=== PATIENT | male | born 1990 | race Caucasian/White ===

== ENCOUNTER 2018-07-29 20:07 | Inpatient (IN) | payer OTHER ==
--- NOTE | 2018-07-29 20:16 | PDOC ---
Rapid Medical Evaluation Chief Complaint: Pain Time Seen by Provider: 07/29/18 20:16 Medical Evaluation: Allergies Allergy/AdvReac Type Severity Reaction Status Date / Time No Known Allergies Allergy Verified 07/29/18 20:15 Vital Signs Temp Pulse Resp BP Pulse Ox 99.7 F H 113 H 16 164/100 100 07/29/18 20:12 07/29/18 20:12 07/29/18 20:12 07/29/18 20:12 07/29/18 20:12 07/29/18 20:16 I have performed a brief in-person evaluation of this patient. The patient presents with a chief complaint of: constipation x months. Last BM- "months ago" Pertinent physical exam findings: ABD Firm and distended I have ordered the following: labs, urine, CTAP The patient will proceed to the ED for further evaluation. Discharge Disposition - Diagnosis Constipation due to opioid therapy - Referrals - Patient Instructions - Post Discharge Activity
[2018-07-29] MEDS ORDERED: SODIUM CHLORIDE 1,000 ML IV STA (20:20)
[2018-07-29 20:42] LABS: BASO % 0.6 % (0-2.0); EOS % 2.5 % (0-4.5); HEMATOCRIT 41.9 % (35.4-49); HEMOGLOBIN 14.3 GM/dL (11.7-16.9); LYMPH % 36.8 % (8-40); MCH 30.1 pg (25.7-33.7); MCHC 34.1 g/dl (32.0-35.9); MEAN CELL VOLUME 88.3 fl (80-96); MEAN PLT VOLUME 7.5 fl (7.5-11.1); MONO % 8.8 % (3.8-10.2); NEUT % 51.3 % (42.8-82.8); PLATELET COUNT 306 K/MM3 (134-434); RBC 4.75 M/mm3 (4.00-5.60); RDW 13.1 % (11.9-15.9)
[2018-07-29 21:07] LABS: ALBUMIN 4.1 g/dl (3.4-5.0); ALK PHOS 99 U/L (45-117); ANION GAP 7 MMOL/L (8-16); BILIRUBIN,TOTAL 0.3 mg/dL (0.2-1); BLOOD UREA NITROGEN 14 mg/dL (7-18); CALCIUM 8.7 mg/dL (8.5-10.1); CHLORIDE 105 mmol/L (98-107); CO2 29 mmol/L (21-32); CREATININE 1.1 mg/dL (0.55-1.3); GLUCOSE,RANDOM 95 mg/dL (74-106); LIPASE 92 U/L (73-393); POTASSIUM 3.9 mmol/L (3.5-5.1); SGOT/AST 17 U/L (15-37); SGPT/ALT 20 U/L (13-61); SODIUM 140 mmol/L (136-145); TOT PROT 7.8 g/dl (6.4-8.2)
--- NOTE | 2018-07-29 21:50 | PDOC ---
Attending Attestation - HPI HPI: 07/29/18 23:09 The patient is a 27-year-old male with past medical history significant for opiate abuse on methadone and asthma presents to the emergency department with constipation. The patient presents with severe constipation, associated with abdominal distention and abdominal pain. The patient reports he hasnt had a full bowel movement in months. The patient reports using over the counter laxatives, without relief. The patient reports he tried to delay having bowel movements, secondary to the hard stool with a painful bowel movement. The patient reports taking stool softeners, laxatives, drinking castor oil and recently having a fleet enema, without improvement. The patient reports an additional concern of dysuria. Denies nausea, vomiting, loss of appetite, hematuria, frequency or urgency to urinate, fever, chills. Allergies: NKA Social history: None reported PCP: Ratna Ambriz MD - Physicial Exam PE: 07/29/18 22:33 GENERAL: Awake, alert, and fully oriented, in no acute distress HEAD: No signs of trauma EYES: PERRLA, EOMI, sclera anicteric, conjunctiva clear ENT: Auricles normal inspection, hearing grossly normal, nares patent, oropharynx clear without exudates. Moist mucosa NECK: Normal ROM, supple, no lymphadenopathy, JVD, or masses LUNGS: Breath sounds equal, clear to auscultation bilaterally. No wheezes, and no crackles HEART: +Tachycardia. Regular rate and rhythm, normal S1 and S2, no murmurs, rubs or gallops ABDOMEN: +Abdominal distended with palpable mass to the L. side of the abdomen consistent with fecal impaction. EXTREMITIES: Normal range of motion, no edema. No clubbing or cyanosis. No cords, erythema, or tenderness NEUROLOGICAL: Cranial nerves II through XII grossly intact. Normal speech. SKIN: Warm, Dry, normal turgor, no rashes or lesions noted. - Medical Decision Making 07/29/18 22:34 Documentation prepared by Rolanda Holley, acting as behavioral medical director for Adrienne Hopkins DO. <Rolanda Holley - Last Filed: 07/29/18 23:09> - Resident Resident Name: Rashida Navarro - ED Attending Attestation I have performed the following: I have examined & evaluated the patient, The case was reviewed & discussed with the resident, I agree w/resident's findings & plan, Exceptions are as noted - Medical Decision Making 07/29/18 21:50 I, Dr. Adrienne Hopkins, DO, attest that this document has been prepared under my direction and personally reviewed by me in its entirety. I further attest, that it accurately reflects all work, treatment, procedures and medical decision -making performed by me. 07/29/18 22:06 a/p: 27yo male with constipation x 4 months -has to use a suppository and enema to have a bm -rectal pain -on methadone -has been eating and drinking - no vomiting -now leaking watery stool around the rectal area -will send labs, ua, ct abd/pelvis -will need fecal disimpaction 07/30/18 01:39 pt with UTI pt with sever constipation to the cecum will start disimpaction and enema will need admission for surgical eval 07/30/18 01:40 pt with hydro and uti from fecal impaction 07/30/18 01:40 case discussed with [facility] who accepts pt to service <Adrienne Hopkins - Last Filed: 07/30/18 01:40>
[2018-07-29 21:55] LABS: URINE APPEARANCE SLCLOUDY; URINE BILIRUBIN NEGATIVE (<2.0 mg/dL); URINE COLOR YELLOW; URINE GLUCOSE (UA) NEGATIVE (NEGATIVE); URINE KETONE NEGATIVE (NEGATIVE); URINE LEUK ESTERASE 2+ (NEGATIVE); URINE NITRITE NEGATIVE (NEGATIVE); URINE PROTEIN NEGATIVE (NEGATIVE)
[2018-07-29 22:01] LABS: EPI CELLS RARE /HPF (FEW); URINE MUCUS RARE
[2018-07-29] MEDS ORDERED: LIDOCAINE HCL 5% TOP OINTMENT 50 GM TUBE TP ONE (22:03)
[2018-07-29] MEDS ORDERED: CEFTRIAXONE 1,000 MG in DEXTROSE 5%-WATER - 50 ML IVPB ONE (22:03)
[2018-07-29] MEDS ORDERED: LIDOCAINE VISCOUS 2% ORAL/TOP 20 ML UNIT-DOSE CUP ONE (22:18)
[2018-07-29] MEDS ORDERED: CEFTRIAXONE 1 GM/50 ML BAG ONE (22:19)
--- NOTE | 2018-07-29 22:33 | PDOC ---
History of Present Illness - General Chief Complaint: Pain Stated Complaint: ABDOMINAL PAIN Time Seen by Provider: 07/29/18 20:16 - History of Present Illness Initial Comments: Andrey Ravi is a 27yo man with a history of previous substance abuse, currently on methadone, and chronic constipation who presents with abdominal distension and pain secondary to severe constipation. He reports that he has not had a normal, full bowel movement in months. Mr Ravi reports that he has had severe constipation since starting on methadone 1.5 years ago. He reported this to his methadone clinic but was told to "eat fruit and drink more water." He tried using over the counter laxatives and stool softeners including Miralax and occasionally Metamucil without any improvement. He was previously seen in the ED in February complaining of abdominal pain and was found to be constipated at that time as well; he was prescribed doc /senna and referred to GI. He states that GI only told him to continue the senna , but it has not helped. He additionally reports that the constipation has become so severe because he has had very hard stools and pain with bowel movements, so he has intentionally delayed trying to have a bowel movement for days at a time. At this point, he has a distended abdomen and severe pain. He reports liquid stool on occasion that he believes is coming out around a large, hard and sharp piece of stool. He reports that he can feel the stool all the way up to the epigastric area under his ribs. He has also had leakage of liquid stool recently. He has tried drinking sandoval oil, stool softeners and laxatives, and recently tried a Fleet's enema without improvement. He was trying to put off coming to the ED, but his mother made him come today. Mr Ravi denies any nausea or vomiting, and he has been able to eat and drink without difficulty. He does report some burning pain with urination but no frequency or urgency. He has not had fevers, chills, or any other symptoms. Past History - Past Medical History Allergies/Adverse Reactions: Allergies Allergy/AdvReac Type Severity Reaction Status Date / Time No Known Allergies Allergy Verified 07/29/18 20:15 Home Medications: Ambulatory Orders Benzonatate [Tessalon Perle] 100 mg PO TID PRN #30 capsule 02/24/14 Moxifloxacin HCl [Avelox] 400 mg PO DAILY #7 tablet 02/24/14 Salmeterol/Fluticasone [Advair 250Mcg/50Mcg] 1 inh PO BID #1 diskus 02/24/14 Zolpidem Tartrate [Ambien] 10 mg PO HS #30 tablet 08/17/15 Docusate Sodium [Colace] 100 mg PO DAILY #10 capsule 02/23/18 Methadone [Dolophine -] 120 mg PO DAILY 02/23/18 Sennosides [Senna] 8.6 mg PO DAILY #10 tablet 02/23/18 Anemia: No Asthma: Yes Cancer: No Cardiac Disorders: No CVA: No COPD: No CHF: No Dementia: No Diabetes: No GI Disorders: No Disorders: No HTN: No Hypercholesterolemia: No Kidney Stones: No Liver Disease: No Seizures: No Thyroid Disease: No - Surgical History Abdominal Surgery: No Appendectomy: No Cardiac Surgery: No Cholecystectomy: No Lung Surgery: No Neurologic Surgery: No Orthopedic Surgery: No - Family Disease History Family Disease History: Diabetes: Grandparents (maternal grandmother) - Reproductive History Testicular Surgery: No - Immunization History Immunization Up to Date: Yes - Suicide/Smoking/Psychosocial Hx Smoking History: Never smoked Have you smoked in the past 12 months: No Number of Cigarettes Smoked Daily: 10 Information on smoking cessation initiated: No 'Breaking Loose' booklet given: 02/23/18 Hx Alcohol Use: No Drug/Substance Use Hx: No Substance Use Type: None Hx Substance Use Treatment: No Review of Systems - Review of Systems Comments:: General: No fevers, no chills, no weight or appetite change, no malaise HEENT: No changes in vision, no changes in hearing, no congestion, no sore throat CV: No chest pain, no palpitations, no LE edema Pulm: No SOB, no cough, no wheezing GI: No nausea or vomiting. Severe constipation, small watery diarrhea, bowel incontinence : No frequency, no urgency. +dysuria, burning pain Musc: No back pain, no joint swelling, no recent injury Skin: No rash, no lesions, no erythema Endo: No excessive thirst, no heat/cold intolerance Heme: No unusual bruising or bleeding, no swollen glands Neuro: No syncope, no numbness/tingling, no focal weakness Vasc: No claudication Psych: No recent change in mood, no SI or HI *Physical Exam - Vital Signs Last Vital Signs Temp Pulse Resp BP Pulse Ox 99.7 F H 113 H 16 164/100 100 07/29/18 20:12 07/29/18 20:12 07/29/18 20:12 07/29/18 20:12 07/29/18 20:12 - Physical Exam Comments: General: Comfortable, no acute distress HEENT: PERRL, EOMI, MMM, voice normal, normal neck ROM, no LAD Cards: RRR, no murmur appreciated Pulm: Comfortable on room air, clear to auscultation bilaterally Abd: Distended, firm. Mass along left side of abdomen and around to epitastrium c/w fecal impaction : No CVA tenderness Rectal: Anus slightly open with liquid stool leaking. No blood, no lesions, no external hemorrhoids. Very large, [id number] stool palpable, difficult to reach edges, at least 3" in diameter. Ext: Atraumatic. No LE edema. ROM intact. Strength 5/5 and equal bilaterally Vasc: Extremities WWP. Palpable radial and pedal pulses bilaterally Skin: Normal color, no rashes or lesions Neuro: A&Ox3, CN grossly intact, normal speech, motor/sensory grossly intact and symmetric Psych: Mood appropriate to situation ED Treatment Course - LABORATORY CBC & Chemistry Diagram: 07/29/18 20:33 07/29/18 20:31 - ADDITIONAL ORDERS Additional order review: Laboratory Results 07/29/18 07/29/18 07/29/18 21:40 20:33 20:31 WBC 9.0 RBC 4.75 Hgb 14.3 Hct 41.9 MCV 88.3 MCH 30.1 MCHC 34.1 RDW 13.1 Plt Count 306 D MPV 7.5 Absolute Neuts (auto) 4.6 Neutrophils % 51.3 D Lymphocytes % 36.8 D Monocytes % 8.8 Eosinophils % 2.5 D Basophils % 0.6 Nucleated RBC % 0 Sodium 140 Potassium 3.9 Chloride 105 Carbon Dioxide 29 Anion Gap 7 L BUN 14 Creatinine 1.1 Creat Clearance w eGFR > 60 Random Glucose 95 Calcium 8.7 Total Bilirubin 0.3 AST 17 ALT 20 Alkaline Phosphatase 99 Total Protein 7.8 Albumin 4.1 Lipase 92 Urine Color Yellow Urine Appearance Slcloudy Urine pH 5.0 Ur Specific [place] 1.021 Urine Protein Negative Urine Glucose (UA) Negative Urine Ketones Negative Urine Blood Negative Urine Nitrite Negative Urine Bilirubin Negative Urine Urobilinogen 2.0 Ur Leukocyte Esterase 2+ H Urine WBC (Auto) 71 Urine RBC (Auto) 2 Ur Epithelial Cells Rare Urine Mucus Rare 07/29/18 20:33 RBC 4.75 MCV 88.3 MCHC 34.1 RDW 13.1 MPV 7.5 Neutrophils % 51.3 D Lymphocytes % 36.8 D Monocytes % 8.8 Eosinophils % 2.5 D Basophils % 0.6 - Medications Given in the ED: ED Medications Discontinued Medications Generic Name Dose Route Start Last Admin Trade Name Freq PRN Reason Stop Dose Admin Sodium Chloride 1,000 mls @ 1,000 mls/hr 07/29/18 20:20 07/29/18 20:49 Normal Saline - IV 07/29/18 21:19 1,000 mls/hr ASDIR STA Administration Lidocaine HCl 1 applic 07/29/18 22:03 07/29/18 22:29 Xylocaine 5% Top. Ointment TP 07/29/18 22:04 1 applic ONCE ONE Administration Medical Decision Making - Medical Decision Making 07/29/18 22:33 Andrey Ravi is a 27yo man currently on methadone with a history of chronic constipation. He presents with severe abdominal pain and distension, stating that he has not had a bowel movement in four months. - CBC, CMP, UA and CT abd/pelvis with contrast ordered in [facility] - Labs reviewed, no abnormalities. - UA positive. Ceftriaxone 1g given for complicated UTI 07/30/18 01:07 - CT completed. Impacted stool throughout entire colon from rectum to cecum, colon up to 11cm in diameter - Manual disimpaction attempted with minimal success 07/30/18 01:27 - Soap suds enema given - Will reattempt disimpaction following enema - 15mg IV toradol given for pain, 0.5mg ativan for anxiety 07/30/18 02:42 - Some improvement in pain and anxiety - Following enema, some liquid stool evacuated along with enema liquid. No solid stool noted, but Mr Ravi states that he "can feel it moving down" - Discussed admission with the med/surg team. Patient will most likely need disimpaction or manual removal of stool under anesthesia as he is experiencing significant discomfort from bedside attempts - Will allow the patient to rest. He may also still get some benefit from the enema. Will re-evaluate and possibly attempt to remove additional stool at bedside if possible. 07/30/18 07:32 - No additional attempt made overnight - Has been seen by med/surg team and admitted for remainder of care. - Continue NPO as Mr Ravi may need remainder of disimpaction under anesthesia. Unlikely to be able to successfully evacuate without assistance and removal of a significant amount of hard stool. Patient signed out to incoming ED team for any remaining care, pending bed placement. Seen and discussed with Dr Hopkins. Rashida Navarro PGY1 *DC/Admit/Observation/Transfer Diagnosis at time of Disposition: Constipation due to opioid therapy, Fecal impaction of colon - Discharge Dispostion Decision to Admit order: Yes - Referrals - Patient Instructions - Post Discharge Activity
[2018-07-30] MEDS ORDERED: LIDOCAINE HCL 2% JELLY 10 ML CARTRIDGE PR ONE (00:26)
[2018-07-30] MEDS ORDERED: MINERAL OIL ENEMA 133 ML ENEMA PR ONE (00:26)
[2018-07-30] MEDS ORDERED: KETOROLAC TROMETHAMINE 30 MG/1 ML VIAL IVPUSH ONE (00:32)
[2018-07-30] MEDS ORDERED: LIDOCAINE HCL 2% JELLY 10 ML CARTRIDGE ONE (01:05)
[2018-07-30] MEDS ORDERED: LORazepam 2 MG/ML SDV VIAL ONE (01:05)
[2018-07-30] MEDS ORDERED: KETOROLAC TROMETHAMINE 15 MG/ML VIAL ONE (01:05)
[2018-07-30] MEDS: LACTATED RINGERS SOLUTION 1,000 ML IV SCH (03:20)
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
[2018-07-30] MEDS ORDERED: METHADONE HCL 10 MG TABLET PO SCH (06:00)
[2018-07-30 06:38] LABS: INR 1.14 (0.83-1.09); PROTHROMBIN TIME (PATIENT) 13.5 SEC (9.7-13.0)
[2018-07-30 06:41] LABS: ACTIVATED PTT 31.3 SECONDS (25.2-36.5)
--- NOTE | 2018-07-30 06:48 | PN ---
Teaching Attending Note Name of Resident: Vera Parks ATTENDING PHYSICIAN STATEMENT I saw and evaluated the patient. I reviewed the resident's note and discussed the case with the resident. I agree with the resident's findings and plan as documented. SUBJECTIVE: Patient is a 27 y/o CM with a PMH significant for opiate abuse on methadone therapy and chronic constipation (CT scan done 03/02). Though he will sometimes have small, liquidy BMs he hasn't had a proper BM in 4 months. Occasionally uses enemas, etc. Hemodynamics stable. Labs essentially normal. Mass fecal impaction with mild R-hydronephrosis seen on CT. ER consulted sgy, GI. Has had several days of dysuria near the end of his stream. OBJECTIVE: VS, labs, and imaging all reviewed NAD, AAOx3 RRR s1/2 no mgr Distended abdomen that is dull to percussion with irregularly shaped palpable masses bordering the colon likely representing colonic contents even to the area which I would assume to be the ascending colon. CN2-12 wnl, no fnd NC AT EOMI PERRLA Normal mood, appropriate behavior Rectal exam shows small fissure at 6 o clock and very hard stool with some liquid enema contents leaking around. No franco blood, etc. CT reviewed; mild R-hydronephrosis with largely dilated colon. No s/s inflammation. Labs reviewed ASSESSMENT AND PLAN: Mr. Ravi is a 27 y/o methadone patient presenting with fecal impaction 1) Acute fecal impaction 2/2 opiate use -NPO; consult GI and sgy to followup -Consider methylnaltrexone. Manual disimpaction by ER failed. -Hold off on further enemas, etc. until found. 2) Methadone maintenance for opiate addiction in remission -Obtain dose and continue inpaitent 3) Hydronephrosis (R) -Due to fecal impaction. Followup repeat US once resolved/resolving. Likely cause of UTI trigger. Likely do not need uro consult at this juncture due to the impaction being the obvious cause. FENA -LR@100 -Monitor and replete PRN -NPO til seen by consultants -As tolerated Full Code
[2018-07-30] MEDS ORDERED: METHADONE HCL 40 MG DISPERSABLE TABLET ONE (08:16)
[2018-07-30] MEDS ORDERED: METHADONE HCL 10 MG TABLET ONE (08:16)
[2018-07-30] MEDS: METHADONE 80 MG, METHADONE 30 MG PO SCH (08:30)
--- NOTE | 2018-07-30 08:45 | PN ---
Progress Note (short form) - Note Progress Note: surgery 27m admitted for fecal impaction on methadone. Management per gi. will be available if requires surgery.
--- NOTE | 2018-07-30 09:50 | CON.GI ---
Consult Consult Specialty:: GI Referred by:: Hospitalist Service Reason for Consultation:: Constipation / fecal impaction - History of Present Illness Chief Complaint: Constoipation, urinary frequency History of Present Illness: 27M admitted for evaluation of constipation. He describes scant bowel movements , watery bowel movements at times and strained bowle movements since he started abusing opioids 2 years ago. It has gotten progressively worse. He was seen by Dr. Gibbons 03/02 who prescribed a bowel regimen of miralax, erika and mag citrate. He said it helped minimally. CT scan in the ER revealed a significant fecal impaction involving the entire colon. Manual dsimpaction was attempted in the ED however he stopped them due to pain. He states that he has manually disimpacted himself in the past. He has had abdominal cramping and fullness. He denies rectal bleeding. he has never had a colonoscopy. There is no family history of colorectal cancer or other GI malignancy. - History Source History Provided By: Patient, Family Member (mother present at bedside) - Past Medical History Psych: Yes: Addictions (Opioid abuse, intermittent cocaine abuse) - Past Surgical History Additional Surgical History: Tonsillectomy - Alcohol/Substance Use Hx Alcohol Use: No History of Substance Use: reports: Cocaine, Heroin (states no use for 6 months, maintained on daily methadone) - Smoking History Smoking history: Never smoked Have you smoked in the past 12 months: No Aproximately how many cigarettes per day: 10 - Social History Usual Living Arrangement: With Parent ADL: Independent 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 History of Recent Travel: No Home Medications - Allergies Allergies/Adverse Reactions: Allergies Allergy/AdvReac Type Severity Reaction Status Date / Time No Known Allergies Allergy Verified 07/29/18 20:15 - Home Medications Home Medications: Ambulatory Orders Benzonatate [Tessalon Perle] 100 mg PO TID PRN #30 capsule 02/24/14 Moxifloxacin HCl [Avelox] 400 mg PO DAILY #7 tablet 02/24/14 Salmeterol/Fluticasone [Advair 250Mcg/50Mcg] 1 inh PO BID #1 diskus 02/24/14 Zolpidem Tartrate [Ambien] 10 mg PO HS #30 tablet 08/17/15 Docusate Sodium [Colace] 100 mg PO DAILY #10 capsule 02/23/18 Methadone [Dolophine -] 120 mg PO DAILY 02/23/18 Sennosides [Senna] 8.6 mg PO DAILY #10 tablet 02/23/18 Family Disease History - Family Disease History Family Disease History: Diabetes: Mother (Alive: DM II, Colon polyps ), Other: Father (Alive: CAD with MN), Mother, Brother (Alive: heroin use), Son (None), Daughter (None) Other Family History: No family history of colorectal cancer or other GI malignancy Physical Exam-GI Vital Signs: Vital Signs Temperature 97.9 F 07/30/18 06:22 Pulse Rate 77 07/30/18 06:22 Respiratory Rate 18 07/30/18 06:22 Blood Pressure 135/89 07/30/18 06:22 O2 Sat by Pulse Oximetry (%) 99 07/30/18 06:22 Constitutional: Yes: Calm Eyes: No: Sclera Icterus Cardiovascular: Yes: Regular Rate and Rhythm Respiratory: Yes: CTA Bilaterally Gastrointestinal Inspection: Yes: Distention (prominent abdomen). No: Scars ...Auscultate: Yes: Normoactive Bowel Sounds ...Palpate: Yes: Other (fullness throughout abdomen, particularly left sided and suprapubic). No: Tenderness ...Percussion: No: Tympanitic ...Rectal Exam: Yes: Other (hard stool noted in rectal vault) Edema: No (No LE edema) Neurological: Yes: Alert Labs: CBC, BMP 07/29/18 20:33 07/29/18 20:31 INR, PTT INR 1.14 (0.83-1.09) H 07/30/18 06:00 Hepatic Panel Total Bilirubin 0.3 mg/dL (0.2-1) 07/29/18 20:31 AST 17 U/L (15-37) 07/29/18 20:31 ALT 20 U/L (13-61) 07/29/18 20:31 Alkaline Phosphatase 99 U/L (45-117) 07/29/18 20:31 Albumin 4.1 g/dl (3.4-5.0) 07/29/18 20:31 Imaging - Results Cat Scan: Report Reviewed, Image Reviewed Problem List - Problems (1) Constipation due to opioid therapy Assessment/Plan: With fecal impaction / obstipation Discussed manual disimpaction under sedation with patient today. he states that he hads nothing to eat or drink today except for methadone with water this morning After disimpaction will start bowel regimen This may include trial of relistor as well Check TSH (ordered for AM) Agree with surgical consult NPO except meds with small sips water IV fluids per primary team Code(s): K59.03 - DRUG INDUCED CONSTIPATION; T40.2X5A - ADVERSE EFFECT OF OTHER OPIOIDS, INITIAL ENCOUNTER
[2018-07-30] MEDS: Methylnaltrexone Bromide 12 MG/0.6 ML KIT SQ SCH (10:23)
--- NOTE | 2018-07-30 12:15 | PN ---
Physical Exam: SUBJECTIVE: Patient seen and examined at bedside. no acute events overnight- patient is still having significant abdominal pain and discomfort even after having received the enema. he was restarted on his methadone dose this am. he denies any CP/SOB/N/V or fevers OBJECTIVE: Vital Signs Period Temp Pulse Resp BP Sys/Rondon Pulse Ox Last 24 Hr 97.9 F-99.7 F 77-113 16-20 135-164/88-100 98-100 GENERAL: The patient is awake, alert, in slight acute distress. EYES: no scleral icterus NECK: no JVD, no lymphadenopathy LUNGS: CTA B/L; no rales, rhonchi or wheezing HEART: Regular rate and rhythm, S1, S2 without murmur, rub or gallop. ABDOMEN: tense, distended hypoactive bowel sounds, no tenderness upon palpation. EXTREMITIES: 2+ pulses, warm, well-perfused, no edema. PSYCH: Normal mood, normal affect. SKIN: Warm, dry, normal turgor, no rashes or lesions noted Laboratory Results - last 24 hr 07/29/18 07/29/18 07/29/18 20:31 20:33 21:40 WBC 9.0 RBC 4.75 Hgb 14.3 Hct 41.9 MCV 88.3 MCH 30.1 MCHC 34.1 RDW 13.1 Plt Count 306 D MPV 7.5 Absolute Neuts (auto) 4.6 Neutrophils % 51.3 D Lymphocytes % 36.8 D Monocytes % 8.8 Eosinophils % 2.5 D Basophils % 0.6 Nucleated RBC % 0 PT with INR INR PTT (Actin FS) Sodium 140 Potassium 3.9 Chloride 105 Carbon Dioxide 29 Anion Gap 7 L BUN 14 Creatinine 1.1 Creat Clearance w eGFR > 60 Random Glucose 95 Lactic Acid Calcium 8.7 Total Bilirubin 0.3 AST 17 ALT 20 Alkaline Phosphatase 99 Total Protein 7.8 Albumin 4.1 Lipase 92 Urine Color Yellow Urine Appearance Slcloudy Urine pH 5.0 Ur Specific [place] 1.021 Urine Protein Negative Urine Glucose (UA) Negative Urine Ketones Negative Urine Blood Negative Urine Nitrite Negative Urine Bilirubin Negative Urine Urobilinogen 2.0 Ur Leukocyte Esterase 2+ H Urine WBC (Auto) 71 Urine RBC (Auto) 2 Ur Epithelial Cells Rare Urine Mucus Rare Blood Type Antibody Screen 07/30/18 07/30/18 07/30/18 06:00 06:00 06:00 WBC RBC Hgb Hct MCV MCH MCHC RDW Plt Count MPV Absolute Neuts (auto) Neutrophils % Lymphocytes % Monocytes % Eosinophils % Basophils % Nucleated RBC % PT with INR 13.50 H INR 1.14 H PTT (Actin FS) 31.3 Sodium Potassium Chloride Carbon Dioxide Anion Gap BUN Creatinine Creat Clearance w eGFR Random Glucose Lactic Acid 0.6 Calcium Total Bilirubin AST ALT Alkaline Phosphatase Total Protein Albumin Lipase Urine Color Urine Appearance Urine pH Ur Specific [place] Urine Protein Urine Glucose (UA) Urine Ketones Urine Blood Urine Nitrite Urine Bilirubin Urine Urobilinogen Ur Leukocyte Esterase Urine WBC (Auto) Urine RBC (Auto) Ur Epithelial Cells Urine Mucus Blood Type O NEGATIVE Antibody Screen Negative Active Medications Generic Name Dose Route Start Last Admin Trade Name Joyce PRN Reason Stop Dose Admin Lactated Ringer's 1,000 mls @ 100 mls/hr 07/30/18 03:15 07/30/18 03:20 Lactated Ringers Solution IV 100 mls/hr ASDIR JUDITH Administration Ceftriaxone Sodium 1 gm/ 50 mls @ 100 mls/hr 07/30/18 20:00 Dextrose IVPB DAILY JUDITH Protocol Methadone HCl 80 mg/ Methadone 110 mg 07/30/18 08:30 07/30/18 08:30 HCl 30 mg PO 110 mg DAILY@0600 JUDITH Administration Methylnaltrexone [place] 12 mg 07/30/18 10:00 07/30/18 10:23 Relistor - SQ 12 mg DAILY JUDITH Administration ASSESSMENT/PLAN: Patient is a 27 year old male with history of opiate abuse (percocet oxycontin, IV heroin) last used 5 months ago, currently on Methadone 110mg daily, presents with complaint of constipation. Fecal impaction -Patient endorses last solid bowel movement approx. 4 months ago. Liquid brown bowel movements since that time. -Severe diffuse colonic fecal impaction noted on CT abdomen pelvis . Rectum distended to 9.3cm diameter. -NPO for now -IV lactated ringer's at 100mL/ hour -Dr Conn saw patient; will perform manual disimpaction under sedation, in addition, patien started on 12mg of methylnaltrexone daily -Surgery saw patient- no surgical intervention at this time Hydronephrosis -Right sided hydronephrosis, hydroureter noted on CT scan abdomen and pelvis. Likely secondary to mass effect obstruction from fecal impaction. -monitor and f/u urology as outpatient Urinary tract infection -Complains of dysuria upon end of urination stream for past week. No hematuria, or urinary frequency. -UA shows 2+ leukocyte esterase, 71 WBC, 2 RBC. -UTI likely secondary to urinary stasis, from ureteral obstruction from fecal impaction. -Rocephin 1 gram IV Q24H Opiod dependence -Patient states he takes Methadone 110mg PO daily -restarted him on this dose FEN -IV lactated ringer's at 100mL/ hour -replete electrolytes when necessary -NPO Prophylaxis -SCDs, TEDs, B/L lower extremities, in anticipation for possible surgical, or GI intervention. r Problem List - Problems (1) Constipation due to opioid therapy Code(s): K59.03 - DRUG INDUCED CONSTIPATION; T40.2X5A - ADVERSE EFFECT OF OTHER OPIOIDS, INITIAL ENCOUNTER (2) Fecal impaction of colon Code(s): K56.41 - FECAL IMPACTION Visit type - Emergency Visit Emergency Visit: Yes ED Registration Date: 07/30/18 Care time: The patient presented to the Emergency Department on the above date and was hospitalized for further evaluation of their emergent condition. - New Patient This patient is new to me today: Yes Date on this admission: 07/30/18 - Critical Care Critical Care patient: No
--- NOTE | 2018-07-30 12:38 | PN ---
Teaching Attending Note Name of Resident: Chanel Bergeron ATTENDING PHYSICIAN STATEMENT I saw and evaluated the patient. I reviewed the resident's note and discussed the case with the resident. I agree with the resident's findings and plan as documented. SUBJECTIVE:c/o diffuse abdominal pain, assoc with shooting pains every 60- 90mins. has been able to tolerate diet. has seen MD in the past who just started stool softeners. denies Cp, SOB, fever, chills, N/V OBJECTIVE: Last Vital Signs Temp Pulse Resp BP Pulse Ox 97.9 F 77 18 135/89 98 07/30/18 06:22 07/30/18 06:22 07/30/18 06:22 07/30/18 06:22 07/30/18 08:00 General NAD CV S1 S2 RRR no murmur/rub/gallop Lungs CTA B/L no wheezing/rales/rhonchi abdomen firm +distended with prominence noted in the LLQ, diffusely tender, hypoactive BS Extremities no pedal edema ASSESSMENT AND PLAN: 27yo M with PMH remote heroin dependence now on methadone and asthma presented to the ER with constipation and obstipation for 4 months and found to have fecal impaction on imaging 1. Fecal impaction- likely due to opiates. Fecalith seen on imaging with noted hard stool by resident on rectal exam. NPO for manual disempaction in the OR today under sedation. will start bowel regimen after, IVF. will need well site drilling engineer agent to reverse effects of mu receptors on the colon while on methadone 2. UTI- likley due to inability to complete empty the bladder. on ceftriaxone day 2. f/u cx 3. R hydronpehrosis- likely due to compression from fecal impaction. should self resolve once corrected. can have f/u images to determine resolution 4. remote heroin use on methadone- dose confirmed. will cont methadone 110mg. no signs of withdrawal 5. DVT ppx- lovenox 6. spoke with mother present at bedside. all questions answered. verbalized understanding and agreement with plan
[2018-07-30] MEDS ORDERED: LIDOCAINE HCL 2% 100 MG/5 ML DISP.SYRIN ONE (14:27)
[2018-07-30] MEDS ORDERED: LIDOCAINE VISCOUS 2% ORAL/TOP 20 ML UNIT-DOSE CUP MM ONE (14:35)
--- NOTE | 2018-07-30 14:48 | PN ---
Progress Note (short form) - Note Progress Note: Procedure: Manual disimpaction under anesthesia Indication: massive fecal impaction Consent: obtained from patient Location: endoscopy unit. cardiopulmonary monitoring Medications: Per anesthesia Patient was sedated. Once sedated, manual disimpaction was undertaken. Copious amounts of hard brown stool were removed from the rectum. There was scant pink blood mixed with the stool initially. there was no palpable, reachable solid stool noted in the rectum when it was completed. 2% viscous lidocane was applied using my finger to the anal canal and distal rectum. Patient tolrated the procedure well MirLAX 17g TID Continue relistor 12mg SC daily Clear liquids Problem List - Problems (1) Constipation due to opioid therapy Code(s): K59.03 - DRUG INDUCED CONSTIPATION; T40.2X5A - ADVERSE EFFECT OF OTHER OPIOIDS, INITIAL ENCOUNTER
[2018-07-30] MEDS: POLYETHYLENE GLYCOL 3350 119 GM BTL PO SCH ×2 (15:59→22:20)
[2018-07-30 16:22] VITALS: BMI 26.4
[2018-07-30] MEDS ORDERED: cefTRIAXone SODIUM 1 GM VIAL ONE (22:17)
[2018-07-30] MEDS ORDERED: DEXTROSE 5%-WATER - 50 ML IVPB ONE (22:17)
[2018-07-30] MEDS: CEFTRIAXONE 1 GM in DEXTROSE 5%-WATER - 50 ML IVPB SCH (22:19)
[2018-07-31] MEDS ORDERED: METHADONE HCL 10 MG TABLET ONE (05:45)
[2018-07-31] MEDS ORDERED: METHADONE HCL 40 MG DISPERSABLE TABLET ONE (05:46)
[2018-07-31] MEDS: METHADONE 80 MG, METHADONE 30 MG PO SCH (05:47)
[2018-07-31] MEDS: POLYETHYLENE GLYCOL 3350 119 GM BTL PO SCH ×3 (05:48→21:21)
[2018-07-31 08:04] LABS: BASO % 0.6 % (0-2.0); EOS % 2.6 % (0-4.5); LYMPH % 44.3 % (8-40); MCH 28.6 pg (25.7-33.7); MCHC 32.4 g/dl (32.0-35.9); MEAN CELL VOLUME 88.5 fl (80-96); MEAN PLT VOLUME 7.6 fl (7.5-11.1); NEUT % 44.5 % (42.8-82.8); PLATELET COUNT 306 K/MM3 (134-434); RBC 4.52 M/mm3 (4.00-5.60); RDW 13.1 % (11.9-15.9); WHITE BLOOD COUNT 9.7 K/mm3 (4.0-10.0)
[2018-07-31] MEDS ORDERED: PT OWN MED DRAWER 7, Y5N ONE ×4 (09:54→16:23)
[2018-07-31] MEDS: CEFTRIAXONE 1 GM in DEXTROSE 5%-WATER - 50 ML IVPB SCH (10:00)
[2018-07-31] MEDS: Methylnaltrexone Bromide 12 MG/0.6 ML KIT SQ SCH (10:10)
--- NOTE | 2018-07-31 10:46 | PN ---
Physical Exam: SUBJECTIVE: Patient seen and examined at bedside. patient underwent the manual disimpaction yesterday with Dr. Conn and had 2 massive bowel movements overnight. he states he is feeling much better and wants to eat a regular diet. he denies any CP/SOB/N/V fevers or chills OBJECTIVE: Vital Signs Period Temp Pulse Resp BP Sys/Rondon Pulse Ox Last 24 Hr 98.1 F-99.0 F 71-82 14-20 128-143/77-95 95-100 GENERAL: The patient is awake, alert, and fully oriented, in no acute distress. EYES: no scleral icterus NECK: no JVD, no lymphadenopathy LUNGS: CTA B/L; no rales, rhonchi or wheezing. HEART: Regular rate and rhythm, S1, S2 without murmur, rub or gallop. ABDOMEN: improving abdominal distention; upper abdomen slightly more soft in comparison to yesterday +BS EXTREMITIES: 2+ pulses, warm, well-perfused, no edema. PSYCH: Normal mood, normal affect. SKIN: Warm, dry, normal turgor, no rashes or lesions noted Laboratory Results - last 24 hr 07/30/18 07/31/18 07/31/18 09:00 07:25 07:25 WBC 9.7 RBC 4.52 Hgb 13.0 Hct 40.0 MCV 88.5 MCH 28.6 MCHC 32.4 RDW 13.1 Plt Count 306 MPV 7.6 Absolute Neuts (auto) 4.3 Neutrophils % 44.5 Lymphocytes % 44.3 H D Monocytes % 8.0 Eosinophils % 2.6 Basophils % 0.6 Nucleated RBC % 0 TSH 2.05 Blood Type O NEGATIVE Active Medications Generic Name Dose Route Start Last Admin Trade Name Freq PRN Reason Stop Dose Admin Lactated Ringer's 1,000 mls @ 100 mls/hr 07/30/18 03:15 07/30/18 03:20 Lactated Ringers Solution IV 100 mls/hr ASDIR JUDITH Administration Ceftriaxone Sodium 1 gm/ 50 mls @ 100 mls/hr 07/30/18 20:00 07/30/18 22:19 Dextrose IVPB 100 mls/hr DAILY JUDITH Administration Protocol Methadone HCl 80 mg/ Methadone 110 mg 07/30/18 08:30 07/31/18 05:47 HCl 30 mg PO 110 mg DAILY@0600 JUDITH Administration Methylnaltrexone [place] 12 mg 07/30/18 10:00 07/30/18 10:23 Relistor - SQ 12 mg DAILY JUDITH Administration Polyethylene Glycol 17 gm 07/30/18 15:00 07/31/18 05:48 Miralax (For Daily Use) - PO 17 grams TID JUDITH Administration ASSESSMENT/PLAN: Patient is a 27 year old male with history of opiate abuse (percocet oxycontin, IV heroin) last used 5 months ago, currently on Methadone 110mg daily, presents with complaint of constipation. Fecal impaction. Severe diffuse colonic fecal impaction noted on CT abdomen pelvis . Rectum distended to 9.3cm diameter. patient underwent manual disimpaction with Dr Conn yesterday -IV lactated ringer's at 100mL/ hour -c/w methylnaltrexon 12 sq daily until discharge then switch to oral agent -c/w miralax 17gm TID -clear diet for now Hydronephrosis -Right sided hydronephrosis, hydroureter noted on CT scan abdomen and pelvis. Likely secondary to mass effect obstruction from fecal impaction. -monitor and f/u urology as outpatient Urinary tract infection -Complains of dysuria upon end of urination stream for past week. No hematuria, or urinary frequency. -UA shows 2+ leukocyte esterase, 71 WBC, 2 RBC. -UTI likely secondary to urinary stasis, from ureteral obstruction from fecal impaction. -Rocephin 1 gram IV Q24H Opiod dependence -Patient states he takes Methadone 110mg PO daily -restarted him on this dose FEN -IV lactated ringer's at 100mL/ hour -replete electrolytes when necessary -clear liquids for now Prophylaxis -SCDs, TEDs Problem List - Problems (1) Constipation due to opioid therapy Code(s): K59.03 - DRUG INDUCED CONSTIPATION; T40.2X5A - ADVERSE EFFECT OF OTHER OPIOIDS, INITIAL ENCOUNTER (2) Fecal impaction of colon Code(s): K56.41 - FECAL IMPACTION Visit type - Emergency Visit Emergency Visit: Yes ED Registration Date: 07/30/18 Care time: The patient presented to the Emergency Department on the above date and was hospitalized for further evaluation of their emergent condition. - New Patient This patient is new to me today: No - Critical Care Critical Care patient: No
--- NOTE | 2018-07-31 12:13 | PN ---
Teaching Attending Note Name of Resident: Chanel Bergeron ATTENDING PHYSICIAN STATEMENT I saw and evaluated the patient. I reviewed the resident's note and discussed the case with the resident. I agree with the resident's findings and plan as documented. SUBJECTIVE:states his abdomen feels much better since yesterday and is less distended. had 3 large BM since procedure yesterday where patient was manually disempacted. tolerating liquid diet and requesting regular food. denies Cp, SOB , fever, chills, N/V/D OBJECTIVE: Last Vital Signs Temp Pulse Resp BP Pulse Ox 98.2 F 71 20 128/80 95 07/31/18 06:00 07/30/18 22:00 07/31/18 06:00 07/31/18 06:00 07/30/18 21:00 General NAD abdomen soft, less distended. firm and distended, irregular shaped in the LLQ. normoactive BS. NT ASSESSMENT AND PLAN: 27yo M with PMH remote heroin dependence now on methadone and asthma presented to the ER with constipation and obstipation for 4 months and found to have fecal impaction on imaging 1. Fecal impaction- likely due to opiates. s/p manual disempaction under sedation in the OR. 3 large BM since. will cont with liquid diet for now. cont aggressive bowel regimen. will need opiate antagonist on discharge. cont IVF. GI on board. 2. UTI- likley due to inability to complete empty the bladder. on ceftriaxone day 3. f/u cx 3. R hydronpehrosis- likely due to compression from fecal impaction. should self resolve once corrected. can have f/u images to determine resolution 4. remote heroin use on methadone- dose confirmed. will cont methadone 110mg. no signs of withdrawal 5. DVT ppx- lovenox
--- NOTE | 2018-07-31 12:15 | PN ---
GI Progress Note Subjective: Patient states having had 3 large bowel movements through the night No abdominal pain. States feeling hungry - Objective Vital Signs: Vital Signs Temperature 98.2 F 07/31/18 06:00 Pulse Rate 71 07/30/18 22:00 Respiratory Rate 20 07/31/18 06:00 Blood Pressure 128/80 07/31/18 06:00 O2 Sat by Pulse Oximetry (%) 95 07/30/18 21:00 Constitutional: Calm Eyes: No: Sclera Icterus Cardiovascular: Yes: Regular Rate and Rhythm Respiratory: Yes: CTA Bilaterally Gastrointestinal Inspection: Yes: Distention (fullness in the left abdomen, LLQ. Somewhat improved from yesterday) ...Auscultate: Yes: Normoactive Bowel Sounds ...Palpate: No: Tenderness ...Percussion: No: Tympanitic Edema: No (No LE edema) Neurological: Yes: Alert Labs: CBC, BMP 07/31/18 07:25 07/29/18 20:31 INR, PTT INR 1.14 (0.83-1.09) H 07/30/18 06:00 Laboratory Tests 07/31/18 07:25 TSH 2.05 Problem List - Problems (1) Constipation due to opioid therapy Assessment/Plan: Clinically improving: Continue Relistor Continue MiraLAX 17g TID Advance diet Code(s): K59.03 - DRUG INDUCED CONSTIPATION; T40.2X5A - ADVERSE EFFECT OF OTHER OPIOIDS, INITIAL ENCOUNTER
--- NOTE | 2018-07-31 16:17 | PN ---
S Progress Note (SOAP) Subjective: [facility] consultation requested for this patient with opioid-induced constipation s/ p disimpaction under anesthesia 07/30/18 , currently on Miralax and Relistor with good symptomatic effect, pt reports 3 large BM through the night and one today this afternoon, reports feeling much better , much decreased abdominal pain and discomfort , improved appetite and is happy that he is able to eat regular food from prior clear liquid diet. Patient reports he is on MMTP @ [facility] , currently on 110 mg q d , prior 140 mg MDD , current dose about 3 -4 weeks, planning to taper off , has take-home doses . Objective: 07/31/18 16:15 wnwd , in no distres , ambulating freely in room , on IVF . AAOx 3 , no sedation noted , no signs of withdrawal reported . 07/31/18 16:17 Assessment: Opioid-induced constipation opioid dependence on agonist therapy 07/31/18 16:16 Plan: call to [facility]- currently closed . Patient may benefit from GDR , to be addressed in [facility] . Discussed with patient , verbalizes understanding and agreement with POC .
[2018-07-31] MEDS: LACTATED RINGERS SOLUTION 1,000 ML IV SCH (19:33)
[2018-08-01] MEDS ORDERED: METHADONE HCL 10 MG TABLET ONE (05:36)
[2018-08-01] MEDS ORDERED: METHADONE HCL 40 MG DISPERSABLE TABLET ONE (05:36)
[2018-08-01] MEDS: POLYETHYLENE GLYCOL 3350 119 GM BTL PO SCH ×2 (05:44→14:29)
[2018-08-01] MEDS: LACTATED RINGERS SOLUTION 1,000 ML IV SCH (05:44)
[2018-08-01] MEDS: METHADONE 80 MG, METHADONE 30 MG PO SCH (05:45)
[2018-08-01 08:24] VITALS: BP 128/90; PULSE 64; TEMP 97.6
[2018-08-01] MEDS ORDERED: FLUCONAZOLE 50 MG TABLET PO ONE (10:08)
--- NOTE | 2018-08-01 10:40 | PN ---
Progress Note (short form) - Note Progress Note: Tolerating regular diet, moving bowels, free of pain. Abdomen minimally distended, soft, nontender. Labs unremarkable: CBC, BMP 07/31/18 07:25 07/29/18 20:31 Impression: Opioid-induced constipation, resolved with Relistor. Pt feels he will be able to administer the drug himself as outpatient. I have warned him, though, that his insurer may not cover it as it is not indicated for persons on methadone maintenance (can cause withdrawal symptoms). He says he did in fact experience minor withdrawal symptoms but nothing severe. The same is true for the alternative of Movantik. Both are approved for treated of opioid-induced constipation in persons with chronic non-cancer pain. If his insurer will not cover Relistor or Movantik he will have to fall back on stimulant laxatives (senna, bisacodyl) and polyethylene glycol (Miralax and others). Will no longer follow in hospital unless called again.
[2018-08-01] MEDS ORDERED: PT OWN MED DRAWER 7, Y5N ONE ×2 (10:44→12:40)
[2018-08-01] MEDS: Methylnaltrexone Bromide 12 MG/0.6 ML KIT SQ SCH (14:28)
--- NOTE | 2018-08-01 15:13 | PN ---
Progress Note (short form) - Note Progress Note: asymptomatic. toleraitng diet. had 4BM yesterday. dneies CP, SOB, fever, chills , N?V/C/D Current Medications Generic Name Dose Route Start Last Admin Trade Name Joyce PRN Reason Stop Dose Admin Lactated Ringer's 1,000 mls @ 100 mls/hr 07/30/18 03:15 08/01/18 05:44 Lactated Ringers Solution IV 100 mls/hr ASDIR JUDITH Administration Methadone HCl 80 mg/ Methadone 110 mg 07/30/18 08:30 08/01/18 05:45 HCl 30 mg PO 110 mg DAILY@0600 JUDITH Administration Methylnaltrexone [place] 12 mg 07/30/18 10:00 08/01/18 14:28 Relistor - SQ 12 mg DAILY JUDITH Administration Polyethylene Glycol 17 gm 07/30/18 15:00 08/01/18 14:29 Miralax (For Daily Use) - PO 17 grams TID JUDITH Administration Last Vital Signs Temp Pulse Resp BP Pulse Ox 97.6 F 64 19 128/90 95 08/01/18 06:00 08/01/18 06:00 07/31/18 19:18 08/01/18 06:00 07/31/18 09:00 General NAD abdomen soft, less distended. normoactive BS. NT ASSESSMENT AND PLAN: 27yo M with PMH remote heroin dependence now on methadone and asthma presented to the ER with constipation and obstipation for 4 months and found to have fecal impaction on imaging 1. Fecal impaction- likely due to opiates. s/p manual disempaction under sedation in the OR. multiple BM. tolerating diet. will d/c on aggressive bowel regimen. movantik. explained this medication should be taken 1 h prior to eating. risks assoc with withdrawal like symtpoms while taking it. cont high fiber diet and increased po hydration. should f/u with GI as outpatient. 2. UTI- likley due to inability to complete empty the bladder. neg for infection +fungal. will d/c ceftriaxone give fluconazole x1. 3. R hydronpehrosis- likely due to compression from fecal impaction. should self resolve once corrected. can have f/u images to determine resolution as outpatient 4. remote heroin use on methadone- dose confirmed. will cont methadone 110mg. no signs of withdrawal 5. DVT ppx- lovenox 6. d/w in detail about dietary changes, medications and follow up. verbalized understnading and agreement with plan Visit type - Emergency Visit Emergency Visit: Yes ED Registration Date: 07/30/18 Care time: The patient presented to the Emergency Department on the above date and was hospitalized for further evaluation of their emergent condition. - New Patient This patient is new to me today: No - Critical Care Critical Care patient: No - Discharge Referral Referred to [facility] Med P.C.: No
== END 2018-08-01 16:40 | disposition home or self-care (01) | DRG 247 ==
LOC: JER 20:07 → JERBED 07-30 02:46 → J6S 07-30 15:35
PROVIDERS: ADMIT Internal Medicine; ATTEND Internal Medicine
PROC: 0DC Gastrointestinal System, Extirpation (ICD-10-PCS; principal; 2018-07-30 14:00)
DX: K56.41 Fecal impaction (principal); K59.03 Drug induced constipation; N39.0 Urinary tract infection, site not specified; N13.30 Unspecified hydronephrosis; F11.20 Opioid dependence, uncomplicated; T40.0X5A Adverse effect of opium, initial encounter; F17.210 Nicotine dependence, cigarettes, uncomplicated
CPT/HCPCS: 36415; 74177-TC; 80053; 81003; 81015; 83605; 83690; 84443; 85025; 85610; 85730; 86850; 86900; 86901; 87086; 97116-GP; 97161-GP; 99285-25; J7030

== ENCOUNTER 2018-11-24 09:03 | Day surgery (SDC) | payer OTHER ==
[2018-11-23 13:37] VITALS: BMI 25.1
[2018-11-24 10:27] VITALS: TEMP 97
[2018-11-24 11:48] VITALS: BP 105/65; PULSE 51
--- NOTE | 2018-11-25 15:49 | PATH ---
Surgical Pathology Report Patient Name: JC HARVEY [facility]. Rec. #: [id number] /Age/Gender: 1990 (Age: 27) / M Account: [id number] Location: U-ENDOSCOPY Taken: 11/24/2018 Received: 11/24/2018 Reported: 11/25/2018 Physicians: Jc Davison D.O. Specimen(s) Received ANTRUM AND BODY Clinical History Abnormal CAT scan Postoperative diagnosis: Duodenitis, fecal impaction Final Diagnosis STOMACH, ANTRUM AND BODY, BIOPSY: GASTRIC ANTRAL AND BODY MUCOSA WITH MILD CHRONIC GASTRITIS. IMMUNOHISTOCHEMICAL STAIN FOR H. PYLORI IS NEGATIVE. Electronically Signed Amanda Cole M.D. Gross Description Received in formalin, labeled "biopsy antrum and body" are 3 mtz, irregular portions of soft tissue ranging from 0.2-0.5 cm. in greatest dimension. The specimens are submitted in toto in one cassette. /11/24/2018 [facility]11/24/2018
== END 2018-11-24 11:25 | disposition home or self-care (01) ==
LOC: JASU-ENDO 09:03
PROVIDERS: ATTEND Internal Medicine Gastroenterology
PROC: 0DB98ZX Excision of Duodenum, Via Natural or Artificial Opening Endoscopic, Diagnostic (ICD-10-PCS; principal; 2018-11-24 09:45)
DX: K44.9 Diaphragmatic hernia without obstruction or gangrene (principal); K29.80 Duodenitis without bleeding; K56.41 Fecal impaction
CPT/HCPCS: 88305-TC; 88342-TC

== ENCOUNTER 2019-06-03 14:21 | Emergency (ER) | payer OTHER ==
--- NOTE | 2019-06-03 14:29 | PDOC ---
Rapid Medical Evaluation Time Seen by Provider: 06/03/19 14:25 Medical Evaluation: Allergies Allergy/AdvReac Type Severity Reaction Status Date / Time No Known Allergies Allergy Verified 07/29/18 20:15 06/03/19 14:26 Pt presents to the ER for a foreign body to the ER to his L eye. 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 States that the eye is painful. UTD on tetanus within the last 5 five years Exam: Foreign body noted to the 6 o'clock position on the L pupil Orders: Nothing Pt to proceed to the ER for further evaluation Discharge Disposition - Diagnosis Foreign bodies - Referrals - Patient Instructions - Post Discharge Activity
[2019-06-03 14:31] VITALS: BP 116/70; PULSE 60; TEMP 98; BMI 22.9
[2019-06-03] MEDS ORDERED: TETRACAINE 0.5% OPHTH SOLN 2 ML BOTTLE ONE (14:59)
[2019-06-03] MEDS ORDERED: FLUORESCEIN NA 1 EA STRIP ONE (14:59)
[2019-06-03] MEDS ORDERED: ERYTHROMYCIN 0.5% OPHTHALMIC OINTMENT 3.5 GM TUBE ONE (14:59)
[2019-06-03] MEDS ORDERED: IBUPROFEN 600 MG TABLET (FP) PO ONE ×2 (15:22→15:25)
--- NOTE | 2019-06-03 15:27 | PDOC ---
History of Present Illness - General Chief Complaint: Eye Problem Stated Complaint: L EYE IRRITATION Time Seen by Provider: 06/03/19 14:25 History Source: Patient Exam Limitations: No Limitations - History of Present Illness Initial Comments: 06/03/19 20:10 Using a drummel tool without protective eyewear and felt a foreign body strike his left eye yesterday afternoon. Denies visual changes although it is painful and his eye has been tearing since. Is this a multiple visit Asthma Patient?: No Timing/Duration: unsure Severity: mild Past History - Travel Traveled outside of the country in the last 30 days: No Close contact w/someone who was outside of country & ill: No - Past Medical History Allergies/Adverse Reactions: Allergies Allergy/AdvReac Type Severity Reaction Status Date / Time No Known Allergies Allergy Verified 06/03/19 14:27 Home Medications: Ambulatory Orders Methadone [Dolophine -] 110 mg PO DAILY 02/23/18 Docusate Sodium [Colace] 300 mg PO DAILY #90 capsule 08/01/18 Polyethylene Glycol 3350 [Miralax 119 gm Btl -] 17 gm PO TID #1 bottle 08/01/18 Sennosides [Senna] 3 tab PO DAILY 11/24/18 Anemia: No Asthma: Yes Cancer: No Cardiac Disorders: No CVA: No COPD: No CHF: No Dementia: No Diabetes: No GI Disorders: Yes (FECAL IMPACTION) Disorders: No HTN: No Hypercholesterolemia: No Kidney Stones: No Liver Disease: No Seizures: No Thyroid Disease: No - Surgical History Abdominal Surgery: No Appendectomy: No Cardiac Surgery: No Cholecystectomy: No Lung Surgery: No Neurologic Surgery: No Orthopedic Surgery: No - Family Disease History Family Disease History: Diabetes: Grandparents (maternal grandmother) - Reproductive History Testicular Surgery: No - Immunization History Immunization Up to Date: Yes - Suicide/Smoking/Psychosocial Hx Smoking History: Current every day smoker Have you smoked in the past 12 months: Yes Number of Cigarettes Smoked Daily: 5 Information on smoking cessation initiated: Yes 'Breaking Loose' booklet given: 11/23/18 Hx Alcohol Use: No Drug/Substance Use Hx: No Substance Use Type: Cocaine, Heroin Hx Substance Use Treatment: No Review of Systems - Review of Systems Able to Perform ROS?: Yes Is the patient limited Slovak proficient: Yes Constitutional: Yes: Symptoms Reported, See HPI, Malaise HEENTM: Yes: Symptoms Reported, See HPI, Eye Pain, Tearing Respiratory: No: Symptoms reported All Other Systems: Reviewed and Negative *Physical Exam - Vital Signs Last Vital Signs Temp Pulse Resp BP Pulse Ox 98 F 60 16 116/70 100 06/03/19 14:27 06/03/19 14:27 06/03/19 14:27 06/03/19 14:27 06/03/19 14:27 - Physical Exam General Appearance: Yes: Nourished, Appropriately Dressed, Apparent Distress, Mild Distress HEENT: positive: EOMI, MAGALY, Normal ENT Inspection, Normal Voice, TMs Normal, Pharynx Normal, Nasal Congestion (acuity within normal limits), Other (foreign body noted at 6:00 on cornea just below pupil area.) Neck: positive: Supple. negative: Lymphadenopathy (R), Lymphadenopathy (L) Respiratory/Chest: positive: Lungs Clear, Normal Breath Sounds Medical Decision Making - Medical Decision Making 06/03/19 20:[address] Ren Soto who will see patient tomorrow morning at 8: 30 in her office. Recommended erythromycin ointment which patient has applied. *DC/Admit/Observation/Transfer Diagnosis at time of Disposition: Foreign bodies Corneal foreign body Qualifiers: Encounter type: initial encounter Laterality: left Qualified Code(s): T15.02XA - Foreign body in cornea, left eye, initial encounter - Discharge Dispostion Disposition: HOME Condition at time of disposition: Stable Decision to Admit order: No - Referrals Referrals: Ratna Irwin MD [Primary Care Provider] - Meli Morfin MD [Staff Physician] - - Patient Instructions Printed Discharge Instructions: DI for Corneal Foreign Body-Eye Additional Instructions: Rest, avoid rubbing eyes Wash hands, use eye drops as directed, wash hands after use May use eye lubricating drops as often as needed erythromycin ointment, one thin film 3 times a day for 5 days Tylenol or ibuprofen for pain relief Avoid contact with others until redness and discharge is gone from eyes. Followup with ophthalmology in one to 2 days for thorough exam Return to emergency department for worsened pain, swelling, vision problems. - Post Discharge Activity Forms/Work/School Notes: Back to Work
== END 2019-06-03 15:36 | disposition home or self-care (01) ==
LOC: JERFT 14:21 → SUPCPDRO 14:21 → JERFT 15:36
DX: T15.02XA Foreign body in cornea, left eye, initial encounter (principal); W29.8XXA Contact with other powered hand tools and household machinery, initial encounter; Y93.89 Activity, other specified; Y92.89 Other specified places as the place of occurrence of the external cause; Y99.8 Other external cause status
CPT/HCPCS: 99282-25